=== PATIENT | male | born 1945 | race Caucasian/White ===

== ENCOUNTER 2016-07-15 12:46 | Emergency (ER) | payer MEDICARE, BC ==
[~2016-07-15] VITALS: Ht 180.3 cm; Wt 114.5 kg
[~2016-07-15 12:46] MED LIST: AMOXICILLIN 8751 TAB PO; ASPIRIN E.C. 8181 MG PO; BROMIDE NAS; CLARITIN 1010 MG/TAB PO; KLONOPIN 1MG1 MG PO; MIRAPEX 0.125MG; MIRAPEX0.5 MG PO; PRILOSEC 20MG20 MG PO; REMERON30 MG PO; TYLENOL EXTRA500 M1 PO; ZOCOR; ZOCOR 10MG10 MG PO; ZYRTEC 10MG10 MG PO
[2016-07-15 13:30] LABS: BASO % 0.3 % (0.0-2.0); GRAN # 7.4 (1.4-6.5); HEMATOCRIT 42.9 % (42.0-52.0); HEMOGLOBIN 14.6 g/dl (13.5-18.0); LYMPH # 0.8 (1.2-3.4); LYMPH % 8.6 % (20.0-51.0); MEAN CELL VOLUME 84 fl (80.0-100.0); MEAN CORPUSCULAR HEMOGLOBIN 29 pg (27.0-31.0); MEAN CORPUSCULAR HGB CONC 34 g/dl (33.0-37.0); MEAN PLATELET VOLUME 10.3 fl (7.4-10.4); MONO # 0.5 (0.1-0.6); MONO % 5.9 % (1.7-9.3); PLATELET COUNT 162 K/mm3 (130-400); REDCELL DISTRIBUTION WIDTH-CV 14.2 % (11.5-14.5); WHITE BLOOD COUNT 8.8 K/mm3 (4.8-10.8)
[2016-07-15 13:38] LABS: ANION GAP 10 mmol/L (7-16); BLOOD UREA NITROGEN 20 mg/dL (9-20); CALCIUM 8.8 mg/dL (8.4-10.2); CARBON DIOXIDE 24 mmol/L (22-30); CHLORIDE 100 mmol/L (98-107); CREATININE, serum 0.99 mg/dL (0.66-1.25); GLUCOSE 145 mg/dL (74-106); POTASSIUM 3.6 mmol/L (3.4-5.0); SODIUM 134 mmol/L (137-145)
[2016-07-15 13:49] LABS: B-TYPE NATRIURETIC PEPTIDE 343 pg/mL (0-125)
[2016-07-15 13:50] LABS: TROPONIN-I < 0.012 ng/mL (0.000-0.034)
[2016-07-15] MEDS ORDERED: ULTRAM 50MG TAB50 MG PO (14:18)
[2016-07-15 14:52] VITALS: BP 128/74; PULSE 127; TEMP 98.8
== END 2016-07-15 15:06 | disposition home or self-care (01) ==
LOC: COL.ER 12:46
PROVIDERS: Emergency Medicine
DX: J18.9 Pneumonia, unspecified organism (principal); R00.0 Tachycardia, unspecified; Z87.891 Personal history of nicotine dependence

== ENCOUNTER 2016-07-17 07:32 | Emergency (ER) | payer MEDICARE, BC ==
[~2016-07-17] VITALS: Ht 180.3 cm; Wt 114.5 kg
[~2016-07-17 07:32] MED LIST changes: +ULTRAM 50MG TAB50 MG PO
[2016-07-17 07:36] VITALS: BP 123/85; PULSE 98; TEMP 98
[2016-07-17] MEDS ORDERED: DOXYCYCLINE HY100 MG PO (07:48)
[2016-07-17] MEDS ORDERED: VENTOLIN0.09 MG (07:49)
[2016-07-17] MEDS ORDERED: CIPRO 500MG TA500 MG PO (10:05)
== END 2016-07-17 10:34 | disposition home or self-care (01) ==
LOC: COL.ER 07:32
DX: L03.115 Cellulitis of right lower limb (principal); I82.811 Embolism and thrombosis of superficial veins of right lower extremity; J18.9 Pneumonia, unspecified organism; I10 Essential (primary) hypertension; Z87.891 Personal history of nicotine dependence

== ENCOUNTER 2016-07-19 12:27 | Emergency (ER) | payer MEDICARE, BC ==
[~2016-07-19] VITALS: Ht 180.3 cm; Wt 114.5 kg
[~2016-07-19 12:27] MED LIST changes: +CIPRO 500MG TA500 MG PO; +DOXYCYCLINE HY100 MG PO; +VENTOLIN0.09 MG
[2016-07-19 12:29] VITALS: TEMP 97.5
[2016-07-19 13:20] LABS: BASO % 0.5 % (0.0-2.0); EOS # 0.2 (0.0-0.7); EOS % 3.4 % (0-4.0); GRAN # 4.1 (1.4-6.5); HEMATOCRIT 44.1 % (42.0-52.0); HEMOGLOBIN 14.3 g/dl (13.5-18.0); LYMPH # 1.6 (1.2-3.4); LYMPH % 24.8 % (20.0-51.0); MEAN CELL VOLUME 87 fl (80.0-100.0); MEAN CORPUSCULAR HEMOGLOBIN 28 pg (27.0-31.0); MEAN CORPUSCULAR HGB CONC 32 g/dl (33.0-37.0); MEAN PLATELET VOLUME 9.8 fl (7.4-10.4); MONO # 0.5 (0.1-0.6); PLATELET COUNT 215 K/mm3 (130-400); RED BLOOD COUNT 5.09 M/mm3 (4.20-5.60); REDCELL DISTRIBUTION WIDTH-CV 14.3 % (11.5-14.5); WHITE BLOOD COUNT 6.5 K/mm3 (4.8-10.8)
[2016-07-19 13:23] LABS: INR 1.2 (0.8-3.0); PROTHROMBIN TIME 13.1 SECONDS (9.7-12.8)
[2016-07-19 13:35] LABS: ADJUSTED CALCIUM 9.5 mg/dL (8.4-10.2); ALBUMIN 3.7 gm/dL (3.5-5.0); CALCIUM 9.3 mg/dL (8.4-10.2); CREATININE, serum 0.96 mg/dL (0.66-1.25); POTASSIUM 3.9 mmol/L (3.4-5.0); TOTAL PROTEIN 6.6 gm/dL (6.4-8.2)
[2016-07-19 14:42] VITALS: BP 128/81; PULSE 76
== END 2016-07-19 15:25 | disposition home or self-care (01) ==
LOC: COL.ER 12:27
PROVIDERS: Emergency Medicine
DX: L03.115 Cellulitis of right lower limb (principal); J06.9 Acute upper respiratory infection, unspecified
CPT/HCPCS: J7030; Q9967

== ENCOUNTER → 2017-12-24 | Outpatient (CLI) | payer MEDICARE, BC | LOC: COL.RAD 09:18 | DX: M79.645 Pain in left finger(s) (principal) | CPT/HCPCS: J3301 ==

== ENCOUNTER 2018-10-11 17:45 | Emergency (ER) | payer MEDICARE, BC ==
[~2018-10-11] VITALS: Ht 180.3 cm; Wt 115.0 kg
[2018-10-11 18:06] VITALS: BP 154/82; TEMP 98
[2018-10-11 20:57] VITALS: PULSE 71
== END 2018-10-11 20:59 | disposition home or self-care (01) ==
LOC: COL.ER 17:45
DX: R60.0 Localized edema (principal); R79.1 Abnormal coagulation profile; Z87.891 Personal history of nicotine dependence

== ENCOUNTER → 2018-10-12 | Outpatient (CLI) | payer MEDICARE, BC | LOC: COL.RAD 13:38 | DX: R60.0 Localized edema (principal); R79.1 Abnormal coagulation profile ==

== ENCOUNTER → 2019-06-20 | Outpatient (CLI) | payer MEDICARE, BC | LOC: COL.RAD 13:00 | DX: M25.542 Pain in joints of left hand (principal); Z96.692 Finger-joint replacement of left hand | CPT/HCPCS: J3301; Q9967 ==

== ENCOUNTER → 2020-02-23 | Outpatient (CLI) | payer MEDICARE, BC | LOC: COL.RAD 10:30 | DX: M79.645 Pain in left finger(s) (principal); Z96.691 Finger-joint replacement of right hand | CPT/HCPCS: J3301; Q9967 ==

== ENCOUNTER 2020-08-27 22:28 | Emergency (ER) | payer MEDICARE, BC ==
[~2020-08-27] VITALS: Ht 180.3 cm; Wt 120.9 kg
[2020-08-27 22:34] VITALS: TEMP 98.4
[2020-08-27 23:40] VITALS: BP 133/85; PULSE 93
== END 2020-08-27 23:40 | disposition home or self-care (01) ==
LOC: COL.ER 22:28
DX: T17.208A Unspecified foreign body in pharynx causing other injury, initial encounter (principal); Z88.2 Allergy status to sulfonamides

== ENCOUNTER 2021-12-27 07:57 | Day surgery (SDC) | payer MEDICARE, BC ==
[~2021-12-27] VITALS: Ht 180.3 cm; Wt 111.7 kg
[2021-12-27] MEDS ORDERED: PROTONIX 40MG T40 MG PO (09:26)
[2021-12-27] MEDS ORDERED: SINGULAIR 110 MG/TAB PO (09:27)
[2021-12-27] MEDS ORDERED: COZAAR 50MG50 MG/TAB PO (09:28)
[2021-12-27] MEDS ORDERED: EUTHYROX50 MCG PO (09:29)
[2021-12-27] MEDS ORDERED: ATROVENT NASAL15 ML NS ×2 (09:29→09:32)
[2021-12-27] MEDS ORDERED: XALATAN EYE DROPS OU (09:30)
[2021-12-27] MEDS ORDERED: PHARMASSURE ZIN50 MG PO (09:33)
[2021-12-27] MEDS ORDERED: VITAMIN D31000 I1 PO (09:33)
[2021-12-27] MEDS ORDERED: FISH OIL1000 MG PO (09:33)
[2021-12-27 11:15] VITALS: BP 120/74; PULSE 81; TEMP 97.1
[2021-12-27 11:30] VITALS: BP 130/85; PULSE 77
[2021-12-27 11:45] VITALS: BP 135/82; PULSE 77
--- NOTE | 2021-12-27 11:51 | NUR ---
1115 - PT arrives from procedure and was settled by Sha COHEN; verbal and written report then obtained. PT provided snack and drink; denies pain/nausea. Visitor is present and non-slip socks are on. 1130 - Vitals obtained. PT continues to snack and drink; call [place] within reach if needed. 1145 - Vitals obtained. IV discontinued. Catheter tip intact and pressure bandage applied. NO redness or swelling noted. DC instructions and educational material reviewed w/ PT who verbalized understanding and signed the related paperwork. Questions answered to PT satisfaction. PT refused RN assistance changing into personal clothes; call [place] remains within reach and non-slip socks are on.
--- NOTE | 2021-12-27 12:02 | NUR ---
1200 - PT contacting [facility] for ride home [place]. Call [place] is within reach if needed.
--- NOTE | 2021-12-27 12:45 | NUR ---
1235 - PT dismissed from endo via wheelchair to PT entrence by an RN; PT has DC packet and personal belongings, PT was transferred into the care of daughter, who is present to ride uber w/ PT.
[2021-12-27 14:06] VITALS: BP 129/92; PULSE 91; TEMP 97.6
== END 2021-12-27 12:35 | disposition home or self-care (01) ==
LOC: SDCO 07:57
DX: Z12.11 Encounter for screening for malignant neoplasm of colon (principal); K57.30 Diverticulosis of large intestine without perforation or abscess without bleeding; D12.8 Benign neoplasm of rectum; K21.9 Gastro-esophageal reflux disease without esophagitis
CPT/HCPCS: J2704; J7030

== ENCOUNTER → 2023-09-29 | Outpatient (CLI) | payer MEDICARE, BC ==
[~2023-09-29] MED LIST changes: +ATROVENT NASAL15 ML NS; +COZAAR 50MG50 MG/TAB PO; +EUTHYROX50 MCG PO; +FISH OIL1000 MG PO; +PHARMASSURE ZIN50 MG PO; +PROTONIX 40MG T40 MG PO; +SINGULAIR 110 MG/TAB PO; +VITAMIN D31000 I1 PO; +XALATAN EYE DROPS OU
== END ==
LOC: MHCPAIN 08:09
DX: M25.561 Pain in right knee (principal); M79.2 Neuralgia and neuritis, unspecified; Z96.651 Presence of right artificial knee joint; G89.29 Other chronic pain; I10 Essential (primary) hypertension; E03.9 Hypothyroidism, unspecified
CPT/HCPCS: G0463

== ENCOUNTER → 2024-01-13 | Outpatient (CLI) | payer MEDICARE, BC ==
[~2024-01-13] MED LIST changes: +Gadoterate 20 ML VIAL IV ONE
== END ==
LOC: COL.RAD 07:39
DX: G31.9 Degenerative disease of nervous system, unspecified (principal); I67.82 Cerebral ischemia; H90.3 Sensorineural hearing loss, bilateral
CPT/HCPCS: A9575